=== PATIENT | female | born 1945 | race Caucasian/White ===

== ENCOUNTER 2017-06-27 07:36 | Emergency (ER) | payer OTHER, SELFPAY ==
--- NOTE | 2017-06-27 08:43 | ED.ABDPAIN ---
HPI - Abdominal Pain General Chief Complaint: Abdominal Pain Stated Complaint: ABDOMINAL PAIN, POST HYSTERECTOMY Time Seen by Provider: 06/27/17 07:48 Source: patient Mode of arrival: ambulatory Limitations: no limitations History of Present Illness HPI narrative: 72-year-old female who underwent a total laparoscopic hysterectomy with over removal secondary to uterine cancer. Not currently undergoing any treatment. Here for evaluation of approximately 1 week of occasional bilateral lower abdominal pain. States that it is only somewhat worse with palpation. Not worse with movement. Had an episode recently of constipation and took glwo-rxn-ulxlcst laxatives and now is having a small amount of diarrhea. No urinary symptoms. No vaginal symptoms. No other prior abdominal surgeries. Does not attribute the abdominal pain to any specific incident. No skin changes. Related Data Previous Rx's Medication Instructions Recorded alprazolam 0.5 mg PO BID PRN #10 tab 06/27/17 nitrofurantoin macrocrystal 100 mg PO BID 5 Days #10 cap 06/27/17 Allergies Allergy/AdvReac Type Severity Reaction Status Date / Time Androgenic Anabolic Steroid AdvReac Severe Anxiety Verified 06/27/17 09:59 Review of Systems Constitutional Denies chills, Denies fever(s), Denies lethargy and Denies weakness Cardiovascular Denies dyspnea and Denies dyspnea on exertion Respiratory Denies cough, Denies dyspnea, Denies dyspnea on exertion and Denies wheezing Gastrointestinal Gastrointestinal: Reports abdominal pain, Reports constipation, Denies cramping, Reports diarrhea, Denies nausea and Denies vomiting Genitourinary Denies hematuria, Denies dysuria and Denies flank pain Musculoskeletal Denies back pain, Denies muscle weakness, Denies numbness and Denies tingling Integumentary/Breasts Denies pruritus, Denies erythema, Denies rash and Denies wounds Neurologic Denies numbness, Denies tingling and Denies weakness Allergic/Immunologic Denies wheezing Exam Initial Vital Signs Initial Vital Signs: Vital Signs Temperature 97.9 F 06/27/17 09:09 Pulse Rate 73 06/27/17 09:09 Respiratory Rate 13 06/27/17 09:09 Blood Pressure 148/72 H 06/27/17 09:09 Pulse Oximetry 98 06/27/17 09:09 Resp Effort & Inspection: normal respiratory effort, able to speak in complete sentences, no respiratory distress and no use of accessory muscles Auscultation: clear to auscultation bilaterally, no rales, no rhonchi and no wheezes Cardio Rate: regular rate Rhythm: regular rhythm Heart Sounds: no click, no gallops, no murmurs and no rubs Pulses: normal peripheral pulses GI Palpation: soft, No firm, No guarding, No rigid and tender (Minimally tender bilateral lower abdomen) Skin General: no rashes or lesions noted, No jaundice and No petechiae Lesions: no lesions Neuro General: alert, oriented x3, gait normal and no focal motor deficits Speech: speech normal Motor: strength 5/5 throughout Sensory Exam: no sensory deficits noted Extrem General: full ROM, no clubbing, cyanosis or edema, no pedal edema and no calf tenderness Course Orders Ordered: ED Orders 06/27/17 09:24 Urine Culture Stat Urine Microscopic Stat Vital Signs - 8 hr 06/27/17 09:09 Temperature 97.9 F Pulse Rate 73 Respiratory Rate 13 Blood Pressure 148/72 H Pulse Oximetry 98 MDM - Abdominal Pain Lab Data Attestation: I reviewed the patient's lab results. Lab Results 06/27/17 Range/Units 09:24 Urine WBC 5-10/hpf H (0-5/HPF) Ur Squamous Epith Cells 1-5 /hpf Ur Renal Epithelial Cell 1-5/hpf Ur Culture Indicated? Specimen cultured Micro UA Comment Not Reportable MDM Narrative Medical decision making narrative: Patient with a benign abdominal exam today. His urinalysis with leukocytes and white blood cells and in the setting of the lower abdominal pain and no white blood cells will treat for urinary tract infection. The culture was ordered and is pending. Patient was informed of the pending culture. Patient was also complaining of a ???panic attack ???she does have a history of anxiety. Was given Ativan here in the ER. She was given return precautions. Will hold on further workup for now. Both her and her expressed understanding and agreement with plan. Discharge Plan Departure Patient Disposition: Home, Self-Care Clinical Impression: Abdominal pain, Urinary tract infection, Anxiety Instructions: DI for Abdominal Pain-Adult Activity Restrictions/Additional Instructions: Take all the medications as instructed. Increase your fluid intake. You do have a urine culture that is still pending. Return to the emergency department for any new or worsening symptoms. Call your primary care doctor for follow-up. Prescriptions: New alprazolam 0.5 mg tablet 0.5 mg PO BID PRN (Reason: anxiety) Qty: 10 RF: 0 nitrofurantoin macrocrystal 100 mg capsule 100 mg PO BID 5 Days Qty: 10 RF: 0
[2017-06-27 09:09] VITALS: BP 148/72; PULSE 73; RESP 13; TEMP 36.6; O2SAT 98
[2017-06-27 09:46] LABS: Squamous Epithelial Cell Urine 1-5 /HPF; WBC Urine 5-10/HPF (0-5/HPF)
[2017-06-27 09:47] LABS: Culture Indicated Urine Specimen Cultured; Renal Epithelial Cells Urine 1-5/HPF
[2017-06-27] MEDS: LORazepam 1 MG TABLET PO (10:00)
== END 2017-06-27 10:13 | disposition home or self-care (01) ==
PROVIDERS: Emergency Provider Emergency Medicine
DX: R10.9 Unspecified abdominal pain (principal); N39.0 Urinary tract infection, site not specified; F41.9 Anxiety disorder, unspecified
CPT/HCPCS: 81003; 81015; 87086; 99282